=== PATIENT | female | born 1970 | race American Indian/Alaskan Native ===

== ENCOUNTER 2017-09-20 15:29 | Outpatient (CLI) | payer OTHER ==
--- NOTE | 2017-09-20 18:00 | XRay Report ---
FINAL REPORT EXAM: XR SHOULDER 2+V RT HISTORY: RIGHT SHOULDER PAIN TECHNIQUE: AP, Y, and oblique views of the right shoulder PRIORS: None. FINDINGS: There is no evidence of acute fracture or dislocation. Joint spaces are maintained and bony mineralization is normal. Soft tissues are unremarkable. Early degenerative changes at the AC joint are noted. Subchondral cyst formation is present along the distal clavicle margin. IMPRESSION: No acute abnormality identified in the right shoulder. Degenerative changes at the AC joint.
== END 2017-09-20 15:30 | disposition home or self-care (01) ==
LOC: SPVIMAG 15:29
PROVIDERS: ATTEND Orthopaedic Surgery Sports Medicine
DX: M19.011 Primary osteoarthritis, right shoulder (principal)